=== PATIENT | female | born 1995 | race Caucasian/White ===

== ENCOUNTER 2017-09-14 12:16 | Emergency (ER) | payer OTHER ==
[2017-09-14 12:45] VITALS: BP 130/74
--- NOTE | 2017-09-14 13:54 | UC ---
Throat Pain/Nasal Mark HPI - HPI Summary HPI Summary: [address] st and upset stomach for 2 days - History of Current Complaint Chief Complaint: UCGeneralIllness Stated Complaint: HEADACHE SORE THROAT UPSET STOMACH Time Seen by Provider: 09/14/17 13:37 Hx Obtained From: Patient Hx Last Menstrual Period: RIGHT NOW ?: No Onset/Duration: Sudden Onset, Lasting Days - 2, Still Present Severity: Moderate Pain Intensity: 5 Pain Scale Used: 0-10 Numeric Cough: None - Allergies/Home Medications Allergies/Adverse Reactions: Allergies Allergy/AdvReac Type Severity Reaction Status Date / Time Albuterol Allergy Intermediate Hives Verified 09/14/17 12:45 Brompheniramine Allergy Intermediate Hives Verified 09/14/17 12:45 [From Dimetapp] Erythromycin Allergy Intermediate Hives Verified 09/14/17 12:45 Penicillins Allergy Intermediate Hives Verified 09/14/17 12:45 Phenylpropanolamine Allergy Intermediate Hives Verified 09/14/17 12:45 [From Dimetapp] PMH/Surg Hx/FS Hx/Imm Hx Previously Healthy: No Neurological History: Seizures - Surgical History Surgical History: None - Family History Known Family History: Positive: None - Social History Occupation: Employed Part-time Lives: With Family Alcohol Use: None Substance Use Type: None Smoking Status (MU): Never Smoked Tobacco Review of Systems Constitutional: Fatigue Skin: Negative Eyes: Negative ENT: Sore Throat, Ear Ache Respiratory: Negative Cardiovascular: Negative Gastrointestinal: Negative Genitourinary: Negative Motor: Negative Neurovascular: Negative Musculoskeletal: Negative Neurological: Negative Psychological: Negative Is Patient Immunocompromised?: No All Other Systems Reviewed And Are Negative: Yes Physical Exam Triage Information Reviewed: Yes Appearance: No Pain Distress, Well-Nourished, Ill-Appearing - mild Vital Signs: Initial Vital Signs Temp 98.5 F 09/14/17 12:42 Pulse 90 09/14/17 12:42 Resp 14 09/14/17 12:42 BP 130/74 09/14/17 12:42 Pulse Ox 99 09/14/17 12:42 Vital Signs Reviewed: Yes Eye Exam: Normal Eyes: Positive: Conjunctiva Clear ENT Exam: Normal ENT: Positive: Normal ENT inspection, Hearing grossly normal, Pharynx normal, TMs normal, Uvula midline. Negative: Nasal congestion, Nasal drainage, Tonsillar swelling, Tonsillar exudate, Trismus, Muffled voice, Hoarse voice, Sinus tenderness Dental Exam: Normal Neck exam: Normal Neck: Positive: Supple, Nontender, Enlarged Nodes @ Respiratory Exam: Normal Respiratory: Positive: Chest non-tender, Lungs clear, Normal breath sounds, No respiratory distress, No accessory muscle use Cardiovascular Exam: Normal Cardiovascular: Positive: RRR, No Murmur, Pulses Normal, Brisk Capillary Refill Musculoskeletal Exam: Normal Musculoskeletal: Positive: Strength Intact, ROM Intact, No Edema Neurological Exam: Normal Neurological: Positive: Alert, Muscle Tone Normal Psychological Exam: Normal Skin Exam: Normal Diagnostics - Laboratory Diagnostic Studies Completed/Ordered: RST (+) Throat Pain/Nasal Course/Dx - Course Assessment/Plan: Keflex , increase fluids follow with pcp prn - Differential Dx/Diagnosis Provider Diagnoses: Strep Pharyngitis Discharge - Discharge Plan Condition: Stable Disposition: HOME Prescriptions: Cephalexin SUSP* [Keflex SUSP 250 MG/5 ML*] 500 mg PO BID 10 Days #200 ml Patient Education Materials: Strep Throat (ED) Forms: *Work Release Referrals: MELANI Hernandez [Primary Care Provider] - If Needed
== END 2017-09-14 14:12 | disposition home or self-care (01) ==
LOC: UCCORT 12:16
DX: J02.0 Streptococcal pharyngitis (principal)
CPT/HCPCS: 87651; 99202; G0463

== ENCOUNTER 2017-10-26 18:51 | Emergency (ER) | payer OTHER ==
[2017-10-26 19:16] VITALS: BP 110/73
--- NOTE | 2017-10-26 20:32 | UC ---
Back Pain HPI - HPI Summary HPI Summary: Pt c/o lower right back pain. 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 Pt also c/o of epigastric discomfort. - History of Current Complaint Chief Complaint: UCBackPain Stated Complaint: BACK PAIN Time Seen by Provider: 10/26/17 20:12 Hx Obtained From: Patient Hx Last Menstrual Period: "last month" ?: No Onset/Duration: Gradual Onset, Lasting Days, Still Present Timing: Constant Severity Initially: Mild Severity Currently: Mild Pain Intensity: 3 Back Pain: Is Discrete @ - right lower back Character: Dull, Aching, Stiffness Aggravating Factor(s): Movement, Lifting, Bending Alleviating Factor(s): Rest, Position Associated Signs And Symptoms: Positive: Abdominal Pain - epigastric - Risk Factors AAA Risk Factors: Negative TAD Risk Factors: Negative Cauda Equina Risk Factors: Negative Epidural Abscess Risk Factors: Negative - Allergies/Home Medications Allergies/Adverse Reactions: Allergies Allergy/AdvReac Type Severity Reaction Status Date / Time Albuterol Allergy Intermediate Hives Verified 10/26/17 19:12 Brompheniramine Allergy Intermediate Hives Verified 10/26/17 19:12 [From Dimetapp] Erythromycin Allergy Intermediate Hives Verified 10/26/17 19:12 Penicillins Allergy Intermediate Hives Verified 10/26/17 19:12 Phenylpropanolamine Allergy Intermediate Hives Verified 10/26/17 19:12 [From Dimetapp] Home Medications: Home Medications NK [No Home Medications Reported] 10/26/17 [History Confirmed 10/26/17] PMH/Surg Hx/FS Hx/Imm Hx Previously Healthy: Yes - Surgical History Surgical History: None - Family History Known Family History: Positive: Cardiac Disease - Social History Occupation: Employed Full-time Lives: With Family Alcohol Use: None Substance Use Type: None Smoking Status (MU): Never Smoked Tobacco Have You Smoked in the Last Year: No - Immunization History Vaccination Up to Date: No Review of Systems Constitutional: Negative Skin: Negative Eyes: Negative ENT: Negative Respiratory: Negative Cardiovascular: Negative Gastrointestinal: Abdominal Pain - epigastric Genitourinary: Negative Motor: Negative Neurovascular: Negative Musculoskeletal: Myalgia Neurological: Negative Psychological: Negative Is Patient Immunocompromised?: No All Other Systems Reviewed And Are Negative: Yes Physical Exam Triage Information Reviewed: Yes Appearance: Well-Appearing Vital Signs: Initial Vital Signs Temp 98.4 F 10/26/17 19:09 Pulse 64 10/26/17 19:09 Resp 16 10/26/17 19:09 BP 110/73 10/26/17 19:09 Pulse Ox 100 10/26/17 19:09 Vital Signs Reviewed: Yes Eye Exam: Normal ENT Exam: Normal Dental Exam: Normal Neck exam: Normal Respiratory Exam: Normal Cardiovascular Exam: Normal Abdominal Exam: Other Abdomen Description: Positive: Other: - epigastric pain, mild Musculoskeletal Exam: Other Musculoskeletal: Positive: Other: - right lateral low back pain with palpation, mild Neurological Exam: Normal Psychological Exam: Normal Skin Exam: Normal Back Pain Course/Dx - Course Course Of Treatment: I discussed the results of the uA with the pt and referred her to her PCP for f/u . Pt verbalized understanding and agree dto plan of care. - Differential Dx/Diagnosis Differential Diagnosis/HQI/PQRI: Strain Provider Diagnoses: Low back strain. low back pain. epigastric pain. abnormal UA Discharge - Discharge Plan Condition: Stable Disposition: HOME Patient Education Materials: Acute Low Back Pain (ED), Lower Back Exercises (ED ) Referrals: MELANI Hernandez [Primary Care Provider] - If Needed Additional Instructions: Please follow up with your PCP as soon as possible for routine health maintenance and testing. Additionally, we found an abnormality in your urine test today and encourage you to follow up with your PCP as soon as possible.
[2017-10-27 14:11] LABS: Urine Appearance Clear; Urine Blood Negative (Negative); Urine Color Yellow; Urine Ketones Negative (Negative); Urine Protein Negative (Negative); Urine Specific Gravity 1.027 (1.010-1.030); Urine Urobilinogen Positive (Negative)
== END 2017-10-26 20:45 | disposition home or self-care (01) ==
LOC: UCCORT 18:51
DX: S39.012A Strain of muscle, fascia and tendon of lower back, initial encounter (principal); X50.3XXA Overexertion from repetitive movements, initial encounter; Y93.E9 Activity, other interior property and clothing maintenance; Y92.9 Unspecified place or not applicable; Y99.0 Civilian activity done for income or pay; R10.13 Epigastric pain; R82.90 Unspecified abnormal findings in urine; Z32.02 Encounter for pregnancy test, result negative; Z88.1 Allergy status to other antibiotic agents; Z88.0 Allergy status to penicillin; Z88.8 Allergy status to other drugs, medicaments and biological substances
CPT/HCPCS: 81003; 84702; 99211; G0463

== ENCOUNTER 2019-08-02 15:40 | Emergency (ER) | payer OTHER ==
[2019-08-02 17:46] VITALS: BP 135/87
--- NOTE | 2019-08-02 18:20 | UC ---
Back Pain HPI - HPI Summary HPI Summary: Has chronic back pain, due to scoliosis, worse in the last 3 weeks. No known inciting event. It's worse with prolonged standing at work. - History of Current Complaint Chief Complaint: UCBackPain Stated Complaint: BACK PAIN Time Seen by Provider: 08/02/19 17:58 Hx Obtained From: Patient Hx Last Menstrual Period: 07/07/19 ?: No Onset/Duration: Gradual Onset, Lasting Weeks - 3, Still Present Timing: Constant Severity Initially: Mild Severity Currently: Moderate Pain Intensity: 7 Back Pain: Is Discrete @ - Lower back is > upper back. Character: Dull, Aching, Throbbing Aggravating Factor(s): Movement, Lifting, Bending, Walking Alleviating Factor(s): Rest, Position Associated Signs And Symptoms: Positive: Negative - Allergies/Home Medications Allergies/Adverse Reactions: Allergies Allergy/AdvReac Type Severity Reaction Status Date / Time albuterol Allergy Severe Anaphylatic Verified 08/02/19 17:39 Shock brompheniramine Allergy Unknown Hives Verified 08/02/19 17:39 [From Dimetapp (brompheniramine-PPA)] erythromycin base Allergy Unknown Hives Verified 08/02/19 17:39 Penicillins Allergy Unknown Hives Verified 08/02/19 17:39 phenylpropanolamine Allergy Unknown Hives Verified 08/02/19 17:39 [From Dimetapp (brompheniramine-PPA)] Home Medications: Home Medications Acetaminophen TAB* [Tylenol TAB*] 650 mg PO Q4H PRN 08/02/19 [History Confirmed 08/02/19] PMH/Surg Hx/FS Hx/Imm Hx Previously Healthy: Yes - Surgical History Surgical History: None - Family History Known Family History: Positive: None, Cardiac Disease, Hypertension, Diabetes - Social History Occupation: Employed Full-time Lives: With Family - and boyfriend Alcohol Use: None Substance Use Type: None Smoking Status (MU): Never Smoked Tobacco Have You Smoked in the Last Year: No - Immunization History Vaccination Up to Date: No Review of Systems All Other Systems Reviewed And Are Negative: Yes Musculoskeletal: Positive: Myalgia - upper and lower back Physical Exam Triage Information Reviewed: Yes Appearance: Well-Appearing, Well-Nourished, Pain Distress - mild Vital Signs: Initial Vital Signs Temp 99.4 F 08/02/19 17:40 Pulse 60 08/02/19 17:40 Resp 16 08/02/19 17:40 BP 135/87 08/02/19 17:40 Pulse Ox 100 08/02/19 17:40 Vital Signs Reviewed: Yes Eyes: Positive: Conjunctiva Clear ENT: Positive: Pharynx normal, Nasal congestion - allergic changes., TMs normal Neck exam: Normal Respiratory Exam: Normal Cardiovascular Exam: Normal Abdomen Description: Positive: Nontender, No Organomegaly, Soft Musculoskeletal: Positive: ROM Limited @ - thoracic and lumbar spine. Neurological Exam: Normal Psychological Exam: Normal Skin Exam: Normal Back Pain Course/Dx - Differential Dx/Diagnosis Differential Diagnosis/HQI/PQRI: Arthritis, Strain, Sprain Provider Diagnosis: Low back pain associated with a spinal disorder other than radiculopathy or spinal stenosis, Chronic thoracic back pain, Allergic rhinitis Discharge ED - Sign-Out/Discharge Documenting (check all that apply): Patient Departure All imaging exams completed and their final reports reviewed: No Studies - Discharge Plan Condition: Stable Disposition: HOME Prescriptions: Cyclobenzaprine TAB* [Flexeril 10 MG TAB*] 10 mg PO BEDTIME PRN #30 tab PRN Reason: muscular back pain Diclofenac Sodium 75 mg PO BID PRN #60 tablet.dr PRN Reason: Pain - Moderate Patient Education Materials: Chronic Back Pain (DC), Diclofenac (By mouth), Cyclobenzaprine (By mouth), Allergic Rhinitis (ED) Referrals: Lew Bowen [Primary Care Provider] - Additional Instructions: YOU NEED TO START DOING YOGA 3 DAYS A WEEK. SEARCH "BEGINNING YOGA FOR BACK PAIN" ON [employer] AND DO THE 15 TO 25 MINUTE BEGINNER VIDEOS. YOU GET STRONGER GO TO MORE ADVANCED OR LONGER VIDEOS. SEEING A CHIROPRACTOR COULD BE HELPFUL WELL. For the allergies NEILMED SINUS RINSE: CHECK OUT AT [employer] Saline nasal wash helps with mucous, allergies and congestion. It can be used up to twice a day or only as needed. Use lukewarm tap water. It does not have to be sterilized or distilled water. Do 1/3 on each side and snort out of both nostrils. Repeat the process with 1/6 of the bottle on each side with snorting in between to finish the solution in the bottle MUSCLE SPASM: Drink lots of fluits. Vitamin D3 2000iu daily and calcium 1000mg a day. Magnesium 400 or 500mg once or twice a day. Direct massage can be helpful for trigger point release. Using icyhot or aspercreme - Billing Disposition and Condition Condition: STABLE Disposition: Home
== END 2019-08-02 18:37 | disposition home or self-care (01) ==
LOC: UCCORT 15:40
DX: M53.86 Other specified dorsopathies, lumbar region (principal); J30.9 Allergic rhinitis, unspecified; G89.29 Other chronic pain; M54.6 Pain in thoracic spine; M54.5 Low back pain; Z88.8 Allergy status to other drugs, medicaments and biological substances; Z88.0 Allergy status to penicillin
CPT/HCPCS: 99212; G0463

== ENCOUNTER 2019-12-19 10:57 | Emergency (ER) | payer OTHER ==
[2019-12-19 12:33] VITALS: BP 120/76
[2019-12-19 12:48] LABS: Influenza A Molecular Negative (Negative); Influenza B Molecular Negative (Negative)
--- NOTE | 2019-12-19 13:06 | UC ---
Respiratory Complaint HPI - HPI Summary HPI Summary: Pt presents with c/o sudden onset of diarrhea that occurred last week and reports having a "couple of episodes' then resolved. Pt then states that she had sudden onset of diarrhea again that began 1-2 days ago, cough, burning in chest, pain in rib cage with cough, and nasal congestion, - History of Current Complaint Stated Complaint: HORNER,COUGH,FEVER Time Seen by Provider: 12/19/19 12:17 Hx Obtained From: Patient Hx Last Menstrual Period: 07/07/19 ?: No Onset/Duration: Sudden Onset, Still Present Timing: Intermittent Episodes Severity Initially: Mild Severity Currently: Moderate Pain Intensity: 6 Character: Cough: Nonproductive Aggravating Factors: Deep Breaths, Recumbent Position Associated Signs And Symptoms: Positive: Wheezing, URI, Nasal Congestion - Risk Factors Pulmonary Embolism Risk Factors: Negative Cardiac Risk Factors: Negative Pseudomonas Risk Factors: Negative Tuberculosis Risk Factors: Negative - Allergies/Home Medications Allergies/Adverse Reactions: Allergies Allergy/AdvReac Type Severity Reaction Status Date / Time albuterol Allergy Severe Anaphylatic Verified 12/19/19 11:59 Shock brompheniramine Allergy Unknown Hives Verified 12/19/19 11:59 [From Dimetapp (brompheniramine-PPA)] erythromycin base Allergy Unknown Hives Verified 12/19/19 11:59 Penicillins Allergy Unknown Hives Verified 12/19/19 11:59 phenylpropanolamine Allergy Unknown Hives Verified 12/19/19 11:59 [From Dimetapp (brompheniramine-PPA)] Home Medications: Home Medications NK [No Home Medications Reported] 12/19/19 [History Confirmed 12/19/19] PMH/Surg Hx/FS Hx/Imm Hx Previously Healthy: Yes - Surgical History Surgical History: None - Family History Known Family History: Positive: None, Cardiac Disease, Hypertension, Diabetes - Social History Occupation: Employed Full-time Lives: With Family Alcohol Use: None Substance Use Type: None Smoking Status (MU): Never Smoked Tobacco Have You Smoked in the Last Year: No - Immunization History Vaccination Up to Date: No Review of Systems All Other Systems Reviewed And Are Negative: Yes Constitutional: Positive: Negative Skin: Positive: Negative ENT: Positive: Sinus Congestion Respiratory: Positive: Cough, Other - "chest burning" with cough Cardiovascular: Positive: Negative Gastrointestinal: Positive: Negative Genitourinary: Positive: Negative Motor: Positive: Negative Neurovascular: Positive: Negative Musculoskeletal: Positive: Negative Neurological/Mental Status: Positive: Negative Psychological: Positive: Negative Physical Exam Triage Information Reviewed: Yes Appearance: Well-Appearing Vital Signs: Initial Vital Signs Temp 98.7 F 12/19/19 11:57 Pulse 60 12/19/19 11:57 Resp 16 12/19/19 11:57 BP 120/76 12/19/19 11:57 Pulse Ox 100 12/19/19 11:57 Vital Signs Reviewed: Yes Eye Exam: Normal ENT: Positive: Hearing grossly normal Respiratory: Positive: No respiratory distress Musculoskeletal Exam: Normal Neurological Exam: Normal Psychological Exam: Normal Skin Exam: Normal Respiratory Course/Dx - Course Course Of Treatment: COVID precautions taken - Differential Dx/Diagnosis Differential Diagnosis/HQI/PQRI: Bronchitis, Influenza, Other - COVID Provider Diagnosis: Viral syndrome Discharge ED - Sign-Out/Discharge Documenting (check all that apply): Patient Departure All imaging exams completed and their final reports reviewed: No Studies - Discharge Plan Condition: Stable Disposition: HOME Patient Education Materials: Viral Syndrome (ED) Forms: COVID-19 Tested & Isolation Referrals: Lew Bowen [Primary Care Provider] - If Needed - Billing Disposition and Condition Condition: STABLE Disposition: Home
--- NOTE | 2019-12-22 07:47 | UC ---
- Progress Note Progress Note: Your Coronavirus test was negative You do not have to continue self quarantine but recommend that you continue to social distance If symptoms have persisted or worsened recommend follow up with your PCP or return to urgent care Course/Dx - Diagnoses Provider Diagnoses: Viral syndrome Discharge ED - Sign-Out/Discharge Documenting (check all that apply): Post-Discharge Follow Up All imaging exams completed and their final reports reviewed: No Studies - Discharge Plan Condition: Stable Disposition: HOME Patient Education Materials: Viral Syndrome (ED) Forms: COVID-19 Tested & Isolation Referrals: Lew Bowen [Primary Care Provider] - If Needed - Billing Disposition and Condition Condition: STABLE Disposition: Home
== END 2019-12-19 13:48 | disposition home or self-care (01) ==
LOC: UCCORT 10:57
DX: B34.9 Viral infection, unspecified (principal); R07.89 Other chest pain; Z20.828 Contact with and (suspected) exposure to other viral communicable diseases; Z88.1 Allergy status to other antibiotic agents; Z88.0 Allergy status to penicillin; Z88.8 Allergy status to other drugs, medicaments and biological substances
CPT/HCPCS: 87651; 99211; G0463; U0002